=== PATIENT | male | born 1985 | race Caucasian/White ===

== ENCOUNTER 2021-11-09 01:57 | Inpatient (IN) | payer MEDICAID ==
[2021-11-09] VITALS (9 sets, daily range): BP systolic 46–126
[~2021-11-09] VITALS: Ht 175.3 cm; Wt 99.8 kg
[2021-11-09] MEDS ORDERED: LORazepam 2 MG/ML VIAL ONE ×3 (02:04→02:36)
[2021-11-09] MEDS ORDERED: HALOPERIDOL LACTATE 5 MG/ML VIAL ONE (02:05)
[2021-11-09] MEDS ORDERED: BENZTROPINE MESYLATE 2 MG/ 2 ML AMP ONE (02:06)
[2021-11-09] MEDS ORDERED: NACL 0.9% 2,000 ML IV ONE ×3 (02:15→03:30)
[2021-11-09] MEDS ORDERED: NALOXONE HCL 2 MG/2 ML SYR IVP ONE (02:15)
[2021-11-09] MEDS ORDERED: NALOXONE HCL 0.4 MG/ML AMP (NARCAN) ONE (02:19)
[2021-11-09] MEDS ORDERED: DEXTROSE 50% JECT 50 ML DISP.SYRIN ONE (02:23)
[2021-11-09] MEDS ORDERED: LORazepam 2 MG/ML VIAL IVP ONE ×9 (02:30→05:15)
[2021-11-09] MEDS ORDERED: DEXTROSE 50% JECT 50 ML DISP.SYRIN IVP ONE ×3 (02:30→19:15)
[2021-11-09] MEDS ORDERED: NOREPINEPHRINE 4 MG/4 ML VIAL IV ONE ×4 (02:41→14:18)
[2021-11-09] MEDS ORDERED: NOREPINEPHRINE BITARTRATE 4 MG in NS 246 ML IV ONE ×2 (02:45→03:00)
[2021-11-09] MEDS ORDERED: ACETAMINOPHEN 120 MG SUPP.RECT RC ONE (02:45)
[2021-11-09] MEDS ORDERED: ACETAMINOPHEN 650 MG SUPP.RECT RC ONE ×3 (02:52→08:30)
[2021-11-09] MEDS ORDERED: SODIUM BICARBONATE 0.5 MEQ/ML VIAL INJ ONE (03:00)
[2021-11-09] MEDS ORDERED: MIDAZOLAM IN NACL,ISO-OSMOT/PF 100 ML IV ONE (03:10)
[2021-11-09] MEDS ORDERED: SODIUM BICARBONATE 8.4% JECT 50 MEQ/50 ML SYRINGE ONE ×2 (03:12→10:27)
[2021-11-09] MEDS ORDERED: SODIUM BICARBONATE 8.4% JECT 50 MEQ/50 ML SYRINGE IVP ONE ×3 (03:15→19:15)
[2021-11-09] MEDS ORDERED: VANCOMYCIN HCL 1,000 MG in NS 250 ML IV ONE (03:30)
[2021-11-09] MEDS ORDERED: PIPERACILLIN/TAZO 3.375 GM in NS 50 ML IV ONE (03:30)
[2021-11-09] MEDS: MIDAZOLAM IN NACL,ISO-OSMOT/PF 100 ML IV PRN ×2 (03:49→11:16)
[2021-11-09] MEDS ORDERED: PIPERACILLIN/TAZOBACTAM 3.375 GM/VIAL (ZOSYN) IV ONE (04:08)
[2021-11-09] MEDS ORDERED: VANCOMYCIN HCL 1000 MG/VIAL IV ONE (04:08)
[2021-11-09 05:08] LABS: ANION GAP 14 (5-15); CHLORIDE 116 mmol/L (98-107); GLUCOSE 59 mg/dL (70-99); POTASSIUM 4.1 mmol/L (3.5-5.1); SODIUM SERUM 152 mmol/L (136-145); UREA NITROGEN, BLOOD 15 mg/dL (8-21)
[2021-11-09 05:10] LABS: INR 1.3 (0.80-1.20); PROTHROMBIN TIME 12.7 SECS (9.5-12.5)
[2021-11-09 05:16] LABS: BASOPHILS # (AUTO) 0.1 K/uL (0.0-0.2); BASOPHILS % (AUTO) 0.8 % (0.0-2.0); EOSINOPHILS % (AUTO) 0.2 % (0.0-4.0); HEMATOCRIT 46.8 % (36-54); HEMOGLOBIN 15.7 g/dL (14.0-18.0); LYMPHOCYTES # (AUTO) 3.6 K/uL (1.0-5.5); LYMPHOCYTES % (AUTO) 43.9 % (20.5-51.5); MEAN CORPUSCULAR HEMOGLOBIN 31 pg (27-31); MEAN CORPUSCULAR HGB CONC 34 % (32-36); MEAN CORPUSCULAR VOLUME 94 fL (79.0-98.0); MONOCYTES # (AUTO) 0.3 K/uL (0.0-1.0); MONOCYTES % (AUTO) 3.9 % (1.7-9.3); NEUTROPHILS # (AUTO) 4.2 K/uL (1.8-7.7); NEUTROPHILS % (AUTO) 51.2 % (40.0-70.0); PLATELET COUNT (AUTO) 165 K/uL (130-430); RED CELL DISTRIBUTION WIDTH 13.9 % (9.0-15.0); WHITE BLOOD COUNT (AUTO) 8.2 K/uL (4.8-10.8)
[2021-11-09 05:25] LABS: ACETAMINOPHEN < 1 ug/mL (1-30); ALANINE AMINOTRANSFERASE 163 U/L (12-78); ASPARTATE AMINOTRANSFERASE 481 U/L (10-37); TOTAL BILIRUBIN 0.5 mg/dL (0.0-1.0)
[2021-11-09] MEDS ORDERED: NACL 0.9% 1,000 ML IV ONE ×2 (05:30)
[2021-11-09] MEDS ORDERED: KCL 20 mEq in D5NS 1000 mL 1,000 ML IV ONE (05:30)
[2021-11-09 05:40] LABS: ALCOHOL, BLOOD < 3 mg/dL (<10); CALCIUM 6.9 mg/dL (8.4-11.0); GFR AFRICAN AMERICAN 56 mL/min (>90)
[2021-11-09] MEDS ORDERED: CALCIUM CHLORIDE 1 GM in NS 100 ML IV ONE (06:00)
[2021-11-09] MEDS ORDERED: ASPIRIN 300 MG/SUPP.RECT SUPP RC ONE ×3 (06:00→07:01)
[2021-11-09] MEDS ORDERED: CALCIUM CHLORIDE 1 GM/10 ML DISP.SYRIN (14 mEq Ca++/SYR) ONE (06:59)
[2021-11-09] MEDS ORDERED: levETIRAcetam 1,000 MG IV BAG 100 ML IV ONE (07:00)
[2021-11-09] MEDS ORDERED: D5NS 1,000 ML IV ONE (07:00)
[2021-11-09] MEDS ORDERED: METOPROLOL TARTRATE 5 MG/5 ML AMPUL IVP ONE (07:15)
[2021-11-09] MEDS ORDERED: ONDANSETRON HCL 4 MG/2 ML VIAL IVP PRN (08:15)
[2021-11-09] MEDS ORDERED: ZOLPIDEM TARTRATE 5 MG TABLET PO PRN (08:15)
[2021-11-09] MEDS ORDERED: DOCUSATE SODIUM 100 MG CAPSULE PO PRN (08:15)
[2021-11-09] MEDS ORDERED: D5NS 1,000 ML IV SCH (08:15)
[2021-11-09] MEDS ORDERED: MAGNESIUM SULFATE 50 ML IV PRN (08:15)
[2021-11-09] MEDS ORDERED: NALOXONE HCL 0.4 MG/ML AMP (NARCAN) IVP PRN ×2 (08:15)
[2021-11-09] MEDS ORDERED: MUPIROCIN 2% TOPICAL OINTMENT 22 GM NS PRN (08:15)
[2021-11-09] MEDS ORDERED: ACETAMINOPHEN 325 MG TABLET PO PRN (08:15)
[2021-11-09] MEDS ORDERED: LORazepam 2 MG/ML VIAL IVP PRN (08:15)
[2021-11-09] MEDS ORDERED: MORPHINE 2 MG/ML INJ. SYRINGE IVP PRN ×2 (08:15)
[2021-11-09] MEDS ORDERED: POTASSIUM CHLORIDE 20 MEQ TAB.PRT.SR PO PRN (08:15)
[2021-11-09] MEDS ORDERED: ENOXAPARIN SODIUM 40 MG/0.4 ML SYRINGE SUBCUT SCH (09:00)
[2021-11-09] MEDS ORDERED: NOREPINEPHRINE BITARTRATE 16 MG in NS 234 ML IV PRN (09:45)
[2021-11-09] MEDS: PROPOFOL DRIP 100 ML IV PRN ×2 (09:47→11:17)
[2021-11-09] MEDS ORDERED: ACETAMINOPHEN 650 MG SUPP.RECT RC PRN (10:15)
[2021-11-09] MEDS ORDERED: SODIUM BICARBONATE 8.4% JECT 150 MEQ in 0.45% NACL 1,000 ML IVP SCH (10:15)
[2021-11-09 10:58] LABS: LIPASE 867 U/L (73-393)
[2021-11-09] MEDS ORDERED: PANTOPRAZOLE SODIUM 80 MG in NS 100 ML IVP ONE (11:00)
[2021-11-09] MEDS ORDERED: PANTOPRAZOLE SODIUM 40 MG in NS 50 ML IV SCH (11:30)
[2021-11-09] MEDS ORDERED: VASOPRESSIN 20 UNITS in NS 99 ML IV PRN (11:45)
[2021-11-09] MEDS ORDERED: VANCOMYCIN HCL 1 GM/NS PREMIX 250 ML IV ONE (11:45)
[2021-11-09] MEDS ORDERED: VASOPRESSIN 20 UNITS/ML VIAL IV ONE (11:58)
[2021-11-09] MEDS ORDERED: PHENYLEPHRINE HCL 100 MG in NS 240 ML IV PRN (12:00)
[2021-11-09] MEDS ORDERED: PIPERACILLIN/TAZO 3.375/DEX-IS 50 ML IV SCH (12:00)
[2021-11-09] MEDS ORDERED: PHENYLEPHRINE HCL 10 MG/ML VIAL (NEOSYNEPHRINE) ONE (12:20)
[2021-11-09 12:21] LABS: VANCOMYCIN,RANDOM 13.4 ug/mL
[2021-11-09] MEDS ORDERED: VANCOMYCIN HCL 1,000 MG in NS 250 ML IV SCH (13:00)
[2021-11-09 13:26] LABS: CKMB RELATIVE INDEX 1.2 (0.0-2.9); CREATINE KINASE MB 167.1 ng/mL (0-3.6)
[2021-11-09 14:27] LABS: BILIRUBIN,URINE NEGATIVE (NEGATIVE); BLOOD, URINE 3+ (NEGATIVE); CLARITY/URINE CLOUDY (CLEAR); COLOR,URINE RED (YELLOW); GLUCOSE,URINE NEGATIVE (NEGATIVE); KETONES,URINE NEGATIVE (NEGATIVE); NITRITE, URINE NEGATIVE (NEGATIVE); PROTEIN URINE 2+ (NEGATIVE); UROBILINOGEN,URINE 0.2 (0.2-1.0)
[2021-11-09 14:32] LABS: LEUKOCYTE ESTERASE ,URINE 1+ (NEGATIVE)
[2021-11-09 14:35] LABS: BACTERIA,URINE FEW /HPF (None Seen); MUCUS,URINE None Seen /LPF (None Seen); RBC,URINE >100 /HPF (0-3)
[2021-11-09 14:39] LABS: BARBITURATE, URINE NEGATIVE (NEG <=200); BENZODIAZEPINE, URINE NEGATIVE (NEG <=150); CANNABINOID, URINE NEGATIVE (NEG <=50); COCAINE, URINE NEGATIVE (NEG <=150); METHAMPHETAMINES SCREEN,URINE POSITIVE (NEG <=500); OPIATE, URINE NEGATIVE (NEG <=100); PHENCYCLIDINE SCREEN,URINE NEGATIVE (NEG <=25); UR TRICYCLIC ANTIDEPRESSANTS NEGATIVE (NEG <=300); URINE AMPHETAMINE NEGATIVE (NEG <=500); URINE METHADONE NEGATIVE (NEG <=200); URINE OXYCODONE SCREEN NEGATIVE (NEG <=100); URINE PROPOXYPHENE SCREEN NEGATIVE (NEG <=300)
[2021-11-09] MEDS ORDERED: CALCIUM CHLORIDE 1 GM/10 ML DISP.SYRIN (14 mEq Ca++/SYR) IV ONE (19:15)
[2021-11-09] MEDS ORDERED: EPINEPHrine JECT 0.1 MG/ML SYR IVP ONE (19:15)
[2021-11-09] MEDS ORDERED: NORMAL SALINE 10 ML VIAL IVP ONE (19:15)
[2021-11-09] MEDS ORDERED: ETOMIDATE 20 MG/ 10 ML VIAL (AMIDATE) IVP ONE (19:41)
[2021-11-09] MEDS ORDERED: ROCURONIUM BROMIDE 10 MG/ML (ZEMURON) IV ONE (19:41)
== END 2021-11-09 17:53 | DRG 720 ==
LOC: SED 01:57 → SIC 07:51
PROVIDERS: ADMIT General Practice; ATTEND General Practice
PROC: 0BH17EZ Insertion of Endotracheal Airway into Trachea, Via Natural or Artificial Opening (ICD-10-PCS; principal; 2021-11-09)
PROC: 5A1935Z Respiratory Ventilation, Less than 24 Consecutive Hours (ICD-10-PCS; 2021-11-09)
DX: A41.9 Sepsis, unspecified organism (principal); J96.00 Acute respiratory failure, unspecified whether with hypoxia or hypercapnia; N17.0 Acute kidney failure with tubular necrosis; R65.21 Severe sepsis with septic shock; J69.0 Pneumonitis due to inhalation of food and vomit; E87.0 Hyperosmolality and hypernatremia; E83.51 Hypocalcemia; M62.82 Rhabdomyolysis; I95.9 Hypotension, unspecified; I21.A1 Myocardial infarction type 2; F10.10 Alcohol abuse, uncomplicated; E16.2 Hypoglycemia, unspecified; F17.210 Nicotine dependence, cigarettes, uncomplicated; E86.1 Hypovolemia; Z82.49 Family history of ischemic heart disease and other diseases of the circulatory system; Z83.3 Family history of diabetes mellitus; I46.9 Cardiac arrest, cause unspecified
CPT/HCPCS: 36415; 36600; 71045; 74018; 80053; 80202; 80307; 81000; 82550; 82553; 82803-TC; 82962; 83036; 83605; 83690; 83735; 83880; 84484; 85025; 85379; 85610-TC; 85730-TC; 87040; 87081; 87086; 92950; 93005; 93306; 94002; 94003; 94640; 96365; 96367; 96368; 96375; 96376; 99291; 99292; C9113; G0480; G0481; G0482; J0171; J0515; J1630; J1953; J2060; J2310; J2370; J2543; J2704; J3370; J3490; J7050